=== PATIENT | male | born 1995 | race Caucasian/White ===

== ENCOUNTER 2019-05-18 04:03 | Emergency (ER) | payer OTHER ==
[~2019-05-18] VITALS: Ht 175.3 cm; Wt 81.8 kg
[2019-05-18 04:20] VITALS: BP 172/90
== END 2019-05-18 05:35 | disposition home or self-care (01) ==
LOC: M ED 04:03
DX: F41.8 Other specified anxiety disorders (principal)

== ENCOUNTER → 2019-07-08 | Outpatient (CLI) | payer OTHER ==
--- NOTE | 2019-07-09 08:32 | REP ---
MRI lumbar spine: 07/08/2019. Indication: Low back pain. Comparison: None. Technique: Multiplanar short and long TR sequences of the lumbar spine were obtained without IV Gadolinium. Findings: Vertebral body alignment is anatomic. There are no concerning areas of marrow signal. There is mild disc desiccation at L5/S1. The paraspinal soft tissues are unremarkable. L1/L2, L2/L3, L3/L4 and 12/2004: Normal. L5/S1: There is a left paracentral/lateral disc protrusion which does contact the left S1 nerve root within the lateral recess as well as minimally contacts the exiting L5 nerve root within the medial neural foramen. Impression: Left L5/S1 paracentral/lateral disc herniation as described. Electronically Signed by Juan Cabrera DO 07/09/2019 08:23 A
== END ==
LOC: M RAD 16:43
PROVIDERS: ATTEND Physician Assistant
DX: M51.27 Other intervertebral disc displacement, lumbosacral region (principal)